=== PATIENT | male | born 1970 | race Caucasian/White ===

== ENCOUNTER 2017-06-14 13:04 | Emergency (ER) | payer MEDICAID, OTHER ==
[~2017-06-14] VITALS: Ht 152.4 cm; Wt 90.8 kg
[~2017-06-14 13:04] MED LIST: BUPR100T4 PO; BUSP5TAB3 PO; MELO-100 PO; TERB125G
[2017-06-14 13:17] VITALS: BP 120/82
[2017-06-14 14:37] LABS: CLARITY,URINE CLOUDY (Clear); COLOR,URINE YELLOW (Yellow); GLUCOSE, URINE NEGATIVE (Neg); KETONES,URINE NEGATIVE (Neg); LEUKOCYTE ESTERASE ,URINE LARGE (Neg); NITRITES, URINE NEGATIVE (Neg); OCCULT BLOOD,URINE MODERATE (Neg); PROTEIN,URINE TRACE mg/dl (Neg); UROBILINOGEN,URINE 0.2 E.U/dL (0.2-1.0)
[2017-06-14 14:44] LABS: UA COLLECTION TYPE VOIDED
[2017-06-14 14:45] LABS: BACTERIA,URINE FEW /HPF (Neg); MUCUS STRANDS NONE SEEN /LPF (Neg); WBC,URINE TNTC /HPF (0-4)
[2017-06-14 14:46] LABS: SQUAMOUS EPITHELIAL CELL,UR NONE SEEN /LPF (FEW)
[2017-06-14] MEDS ORDERED: CefTRIAXone 250MG IM Kit w/LIDOcaine IM ONE (14:50)
[2017-06-14] MEDS ORDERED: azithromycin 250mg tablet PO ONE ×2 (14:50→15:05)
[2017-06-14] MEDS ORDERED: CefTRIAXone 250MG inj IM ONE (14:50)
[2017-06-14] MEDS ORDERED: CLIN-80 PO (15:14)
== END 2017-06-14 15:39 | disposition home or self-care (01) ==
LOC: ER 13:05
DX: A64 Unspecified sexually transmitted disease (principal); B95.8 Unspecified staphylococcus as the cause of diseases classified elsewhere; F12.10 Cannabis abuse, uncomplicated; Z98.890 Other specified postprocedural states; Z79.899 Other long term (current) drug therapy; Z60.2 Problems related to living alone
CPT/HCPCS: 81001; 87088; 96372; 99284; J0696

== ENCOUNTER 2017-09-15 09:53 | Emergency (ER) | payer MEDICAID ==
[~2017-09-15] VITALS: Ht 175.3 cm; Wt 91.0 kg
[~2017-09-15 09:53] MED LIST changes: +CLIN-80 PO
[2017-09-15] MEDS ORDERED: CefTRIAXone 250MG IM Kit w/LIDOcaine IM ONE (10:20)
[2017-09-15] MEDS ORDERED: azithromycin 250mg tablet PO ONE (10:20)
[2017-09-15 11:01] LABS: CLARITY,URINE CLOUDY (Clear); COLOR,URINE YELLOW (Yellow); GLUCOSE, URINE NEGATIVE (Neg); KETONES,URINE NEGATIVE (Neg); LEUKOCYTE ESTERASE ,URINE SMALL (Neg); NITRITES, URINE NEGATIVE (Neg); OCCULT BLOOD,URINE TRACE-LYSED (Neg); PH,URINE 6.5 (4.8-8.0); PROTEIN,URINE NEGATIVE (Neg); UA COLLECTION TYPE OTHER; UROBILINOGEN,URINE 0.2 E.U/dL (0.2-1.0)
[2017-09-15 11:15] LABS: RBC,URINE 0-2 /HPF (0-2); WBC,URINE 50-100 /HPF (0-4)
[2017-09-15 11:16] LABS: BACTERIA,URINE FEW /HPF (Neg); MUCUS STRANDS MODERATE /LPF (Neg); SQUAMOUS EPITHELIAL CELL,UR FEW /LPF (FEW); WBC CLUMPS,URINE FEW /HPF (NEGATIVE)
[2017-09-15 11:53] VITALS: BP 149/78
== END 2017-09-15 11:57 | disposition home or self-care (01) ==
LOC: ER 09:53
DX: A64 Unspecified sexually transmitted disease (principal); F12.10 Cannabis abuse, uncomplicated; F17.200 Nicotine dependence, unspecified, uncomplicated; Z98.890 Other specified postprocedural states; Z79.899 Other long term (current) drug therapy; Z60.2 Problems related to living alone
CPT/HCPCS: 36415; 81001; 87088; 87491; 87591; 96372; 99284; J0696

== ENCOUNTER 2018-06-11 20:40 | Emergency (ER) | payer MEDICAID ==
[~2018-06-11 20:40] MED LIST changes: -CLIN-80 PO; +CLIN300C85 PO
== END 2018-06-11 22:25 | disposition left against medical advice (07) ==
LOC: ER 20:41
DX: L50.9 Urticaria, unspecified (principal); Z53.21 Procedure and treatment not carried out due to patient leaving prior to being seen by health care provider

== ENCOUNTER 2018-08-23 18:54 | Emergency (ER) | payer MEDICAID ==
[~2018-08-23] VITALS: Ht 175.3 cm; Wt 90.0 kg
[~2018-08-23 18:54] MED LIST changes: +CLIN-96 PO; -CLIN300C85 PO
[2018-08-23 19:27] VITALS: BP 114/72
[2018-08-23] MEDS ORDERED: LIDOcaine 1% w/epiNEPHrine 1:200,000 30ml vial IM ONE (20:30)
[2018-08-23] MEDS ORDERED: TETanus/Pertussis (Acell)/Diphther VAC/PF (Tdap-Adult) 0.5ml syringe IM ONE (20:30)
== END 2018-08-23 21:59 | disposition home or self-care (01) ==
LOC: ER 18:54
DX: S61.411A Laceration without foreign body of right hand, initial encounter (principal); F12.90 Cannabis use, unspecified, uncomplicated; Z98.890 Other specified postprocedural states; Z60.2 Problems related to living alone; Z79.899 Other long term (current) drug therapy; W26.8XXA Contact with other sharp object(s), not elsewhere classified, initial encounter; Y93.89 Activity, other specified; Y92.89 Other specified places as the place of occurrence of the external cause; Y99.8 Other external cause status
CPT/HCPCS: 12001; 90471; 90715; 99283; J3490

== ENCOUNTER 2018-09-01 08:36 | Emergency (ER) | payer MEDICAID ==
[~2018-09-01] VITALS: Ht 175.3 cm; Wt 95.4 kg
[2018-09-01 08:49] VITALS: BP 130/79
[2018-09-01] MEDS ORDERED: SULF1TAB49 PO (09:15)
[2018-09-01] MEDS ORDERED: CEPH-572 PO (09:15)
== END 2018-09-01 09:30 | disposition home or self-care (01) ==
LOC: ER 08:37
DX: S61.411D Laceration without foreign body of right hand, subsequent encounter (principal); L03.113 Cellulitis of right upper limb; F12.90 Cannabis use, unspecified, uncomplicated; Z98.890 Other specified postprocedural states; Z79.899 Other long term (current) drug therapy; Z60.2 Problems related to living alone; W26.8XXD Contact with other sharp object(s), not elsewhere classified, subsequent encounter
CPT/HCPCS: 99283

== ENCOUNTER 2018-09-26 08:29 | Inpatient (IN) | payer MEDICAID ==
[~2018-09-26] VITALS: Ht 175.3 cm; Wt 98.0 kg
[2018-09-26] MEDS ORDERED: ondansetron/PF 4mg/2ml inj IV ONE (08:40)
[2018-09-26] MEDS ORDERED: morphine 4 MG/ML inj SYRINge IV PRN (08:40)
[2018-09-26] MEDS ORDERED: normal saline 1000ML IV soln IVB ONE (08:40)
--- NOTE | 2018-09-26 09:31 | NUR ---
PIV inserted to RAC via ultrasound after multiple attempts. Morphine and Zofran administered per order. Warm blanket provided. Awaiting CT scan.
[2018-09-26 09:41] LABS: CLARITY,URINE CLEAR (Clear); COLOR,URINE YELLOW (Yellow); GLUCOSE, URINE NEGATIVE (Neg); KETONES,URINE NEGATIVE (Neg); LEUKOCYTE ESTERASE ,URINE NEGATIVE (Neg); NITRITES, URINE NEGATIVE (Neg); OCCULT BLOOD,URINE NEGATIVE (Neg); PROTEIN,URINE 30 mg/dl (Neg); UROBILINOGEN,URINE 0.2 E.U/dL (0.2-1.0)
[2018-09-26 09:48] LABS: UA COLLECTION TYPE CLN CATCH MIDSTREAM
[2018-09-26 09:49] LABS: BACTERIA,URINE NONE SEEN /HPF (Neg); MUCUS STRANDS MODERATE /LPF (Neg); RBC,URINE 0-2 /HPF (0-2); SQUAMOUS EPITHELIAL CELL,UR NONE SEEN /LPF (FEW); WBC,URINE 0-4 /HPF (0-4)
[2018-09-26] MEDS ORDERED: morphine 4 MG/ML inj SYRINge IV ONE (10:45)
[2018-09-26 10:49] LABS: BASOPHILS % (AUTO) 0.3 % (0-1); EOSINOPHILS # (AUTO) 0.1 X10'3 (0-0.9); EOSINOPHILS % (AUTO) 1.2 % (0-6); HEMATOCRIT 46.3 % (42.0-52.0); HEMOGLOBIN 15.5 g/dl (14.0-17.9); LYMPHOCYTES # (AUTO) 0.3 X10'3 (1.1-4.8); LYMPHOCYTES % (AUTO) 2.6 % (21-51); MEAN CORPUSCULAR HEMOGLOBIN 31.8 PG (27.0-31.0); MEAN CORPUSCULAR HGB CONC 33.4 g/dL (33.0-36.5); MEAN PLATELET VOLUME 8.4 FL (7.4-10.4); MONOCYTES # (AUTO) 0.5 X10'3 (0-0.9); MONOCYTES % (AUTO) 4.5 % (2-12); NEUTROPHILS # (AUTO) 10.4 X10'3 (1.8-7.7); NEUTROPHILS % (AUTO) 91.4 % (42-75); PLATELET COUNT 181 X10'3 (140-440); RED BLOOD COUNT 4.88 X10'6 (4.70-6.10); WHITE BLOOD COUNT 11.4 X10'3 (4.5-11.0)
[2018-09-26 11:02] LABS: ALANINE AMINOTRANSFERASE 37 U/L (12-78); ALBUMIN 3.3 G/DL (3.4-5.0); ALBUMIN/GLOBULIN RATIO 0.8 (1.1-1.5); ALKALINE PHOSPHATASE 108 IU/L (46-116); ANION GAP 6 (8-16); ASPARTATE AMINO TRANSFERASE 16 U/L (10-37); BILIRUBIN,TOTAL 0.6 MG/DL (0.1-1.0); BLOOD UREA NITROGEN 15 MG/DL (7-18); BUN/CREATININE RATIO 14.3 (5.4-32.0); CALCIUM 8.5 MG/DL (8.5-10.1); CHLORIDE 103 MMOL/L (99-107); CREATININE 1.05 MG/DL (0.60-1.10); GLUCOSE 102 MG/DL (70-104); LIPASE 210 U/L (73-393); POTASSIUM 4.1 MMOL/L (3.5-5.1); SODIUM 137 MMOL/L (135-145); TOTAL CARBON DIOXIDE 27.7 MMOL/L (24-32); TOTAL PROTEIN 7.5 G/DL (6.4-8.2); eGFR 75 ML/MIN
[2018-09-26] MEDS ORDERED: MIDAZolam 5mg/ml 2ml vial IV ONE (11:30)
[2018-09-26] MEDS ORDERED: NO HOME MEDS (11:39)
[2018-09-26] MEDS ORDERED: ondansetron/PF 4mg/2ml inj IV PRN (11:45)
[2018-09-26] MEDS ORDERED: morphine 2 MG/ML inj. syringe IV PRN (11:45)
[2018-09-26] MEDS ORDERED: magnesium hydroxide 30ml (MOM) UD suspension PO PRN (11:45)
[2018-09-26] MEDS ORDERED: acetaminophen 325mg tablet PO PRN (11:45)
[2018-09-26] MEDS ORDERED: mag hydrox/Alum hydrox/simeth 30ml oral suspension PO PRN (11:45)
[2018-09-26] MEDS: normal saline 1000ml 1,000 ML IV SCH ×2 (12:15→23:40)
[2018-09-26] MEDS ORDERED: LORazepam 2 mg/ml vial IV ONE (12:45)
--- NOTE | 2018-09-26 12:46 | NUR ---
Spoke with Emi VILLALOBOS regarding versed 5 mg IV order to place NG tube and need for moderate sedation protocol. Julia VILLALOBOS stated to discontinue versed and place verbal order for ativan 2 mg IV now for anxiety regarding NG tube placement.
--- NOTE | 2018-09-26 13:24 | NUR ---
ATIVAN GIVEN IVP ORDERED. ATTEMPTED TO INSERT NG TUBE WITHOUT SUCCESS. PATIENT IS VERY ANXIOUS AND MOVING HEAD AROUND DURING INSERTION, AND TUBE IS NOT PROGRESSING DOWN ESOPHAGUS. PATIENT REFUSES TO HAVE PROCEDURE REPEATED. TUBE REMOVED AND ER PROVIDER NOTIFIED OF INABILITY TO SECURE NG TUBE. PROVIDER STATES THAT TUBE WILL REMAIN OUT AND ORDER WILL BE DISCONTINUED.
--- NOTE | 2018-09-26 14:05 | NUR ---
Patient arrived to his room from ER via gurney accompanied by ENVIRONMENTAL MONITORING TECHNICIAN. Patient was sedated as he received Ativan at ER. Initially when patient's O2 sat was checked, the O2 sat was 87% on room air. Hooked patient to oxygen at 2 lpm/nc then O2 sat went up to 96%. Dr. Edwards notified about this
[2018-09-26 14:10] VITALS: BP 147/84
--- NOTE | 2018-09-26 17:52 | NUR ---
Patient has waking up although still feeling sleepy. Patient verbally gave me permission to give update to his daughter Jill
--- NOTE | 2018-09-26 18:35 | NUR ---
Problems reprioritized. Patient report given, questions answered & plan of care reviewed with Joss TUCKER.
[2018-09-26 20:00] VITALS: BP 128/81
[2018-09-26] MEDS: heparin, porcine 5000 units/ml vial SQ SCH (20:11)
[2018-09-26] MEDS: diatr meglu/diatrizoate 30ml oral sol.-(3 dose) bottle PO SCH (21:03)
[2018-09-26 23:30] VITALS: BP 115/65
[2018-09-27 05:53] LABS: BASOPHILS % (AUTO) 0.5 % (0-1); EOSINOPHILS # (AUTO) 0.1 X10'3 (0-0.9); EOSINOPHILS % (AUTO) 1.2 % (0-6); HEMATOCRIT 41.2 % (42.0-52.0); HEMOGLOBIN 14.1 g/dl (14.0-17.9); LYMPHOCYTES # (AUTO) 1.3 X10'3 (1.1-4.8); LYMPHOCYTES % (AUTO) 20.7 % (21-51); MEAN CORPUSCULAR HGB CONC 34.1 g/dL (33.0-36.5); MEAN CORPUSCULAR VOLUME 93.9 FL (78-98); MEAN PLATELET VOLUME 8.8 FL (7.4-10.4); MONOCYTES # (AUTO) 0.5 X10'3 (0-0.9); MONOCYTES % (AUTO) 8.5 % (2-12); NEUTROPHILS # (AUTO) 4.3 X10'3 (1.8-7.7); NEUTROPHILS % (AUTO) 69.1 % (42-75); PLATELET COUNT 159 X10'3 (140-440); RED BLOOD COUNT 4.39 X10'6 (4.70-6.10); RED CELL DISTRIBUTION WIDTH 13.1 % (11.5-14.5); WHITE BLOOD COUNT 6.2 X10'3 (4.5-11.0)
[2018-09-27 06:15] LABS: ALBUMIN 2.7 G/DL (3.4-5.0); ANION GAP 7 (8-16); BLOOD UREA NITROGEN 10 MG/DL (7-18); BUN/CREATININE RATIO 12.3 (5.4-32.0); CALCIUM 8.1 MG/DL (8.5-10.1); CHLORIDE 103 MMOL/L (99-107); CREATININE 0.81 MG/DL (0.60-1.10); GLUCOSE 97 MG/DL (70-104); POTASSIUM 3.8 MMOL/L (3.5-5.1); SODIUM 136 MMOL/L (135-145); TOTAL CARBON DIOXIDE 25.7 MMOL/L (24-32); eGFR > 90 ML/MIN
--- NOTE | 2018-09-27 06:22 | NUR ---
Problems reprioritized. Patient report given, questions answered & plan of care reviewed with SOURAV. Addendum: 09/27/18 at 0623 by Lino Hernandez RN Amended: Links added.
[2018-09-27 07:01] VITALS: BP 105/57
[2018-09-27] MEDS: diatr meglu/diatrizoate 30ml oral sol.-(3 dose) bottle PO SCH ×2 (07:08→10:21)
[2018-09-27] MEDS: normal saline 1000ml 1,000 ML IV SCH (07:12)
[2018-09-27] MEDS: heparin, porcine 5000 units/ml vial SQ SCH (08:00)
[2018-09-27] MEDS ORDERED: iohexol 300mg/ml 100ml inj. ONE (10:17)
[2018-09-27 11:50] VITALS: BP 123/73
--- NOTE | 2018-09-27 16:04 | NUR ---
Patient decided to go AMA instead of waiting for discharge. He was slightly anxious and impatient to wait for DR Medina. Girlfriend picked him up. IV taken out and tele dc'd. Pt appropriate to leave.No nausea, pain. says he is passing gas and tolerated regular diet well. Dr Edwards paged regarding AMA.
== END 2018-09-27 16:02 | disposition left against medical advice (07) | DRG 247 ==
LOC: ER 08:29 → SUR 3N 13:16
PROVIDERS: ADMIT Family Medicine; ATTEND Family Medicine
PROC: BW211ZZ Computerized Tomography (CT Scan) of Abdomen and Pelvis using Low Osmolar Contrast (ICD-10-PCS; principal; 2018-09-27)
DX: K56.600 Partial intestinal obstruction, unspecified as to cause (principal); F12.90 Cannabis use, unspecified, uncomplicated; F15.10 Other stimulant abuse, uncomplicated; R06.03 Acute respiratory distress; R19.7 Diarrhea, unspecified; Z53.21 Procedure and treatment not carried out due to patient leaving prior to being seen by health care provider; Z60.2 Problems related to living alone; K56.7 Ileus, unspecified; Z71.51 Drug abuse counseling and surveillance of drug abuser
CPT/HCPCS: 36415; 74176; 74177; 80048; 80053; 81001; 82948; 83690; 85025; 87070; 96361; 96374; 96375; 96376; 99285; G0378; J1644; J2060; J2270; J2405; J7030; Q9963; Q9967

== ENCOUNTER 2019-06-08 07:19 | Emergency (ER) | payer MEDICAID ==
[~2019-06-08] VITALS: Ht 175.3 cm; Wt 91.6 kg
[~2019-06-08 07:19] MED LIST changes: -BUPR100T4 PO; -BUSP5TAB3 PO; -CLIN-96 PO; -MELO-100 PO; +NO HOME MEDS; -TERB125G
[2019-06-08] MEDS ORDERED: famotidine/PF 10 mg/ml inj IV ONE (08:25)
[2019-06-08] MEDS ORDERED: normal saline 1000ML IV soln IVB ONE (08:25)
[2019-06-08] MEDS ORDERED: ondansetron/PF 4mg/2ml inj IV ONE (08:25)
[2019-06-08 08:43] LABS: CLARITY,URINE SLIGHTLY CLOUDY (Clear); COLOR,URINE YELLOW (Yellow); GLUCOSE, URINE NEGATIVE (Neg); KETONES,URINE NEGATIVE (Neg); LEUKOCYTE ESTERASE ,URINE NEGATIVE (Neg); NITRITES, URINE NEGATIVE (Neg); OCCULT BLOOD,URINE TRACE-INTACT (Neg); PROTEIN,URINE NEGATIVE (Neg)
[2019-06-08 08:54] LABS: UA COLLECTION TYPE CLN CATCH MIDSTREAM
[2019-06-08 08:55] LABS: BACTERIA,URINE 1+ /HPF (Neg); HYALINE CASTS 0-3 /LPF (NEGATIVE); MUCUS STRANDS MANY /LPF (Neg); SQUAMOUS EPITHELIAL CELL,UR FEW /LPF (FEW); WBC,URINE 0-4 /HPF (0-4)
[2019-06-08 09:23] LABS: BASOPHILS % (AUTO) 0.3 % (0-1); EOSINOPHILS # (AUTO) 0.1 X10'3 (0-0.9); EOSINOPHILS % (AUTO) 1.2 % (0-6); HEMATOCRIT 44.2 % (42.0-52.0); HEMOGLOBIN 15.3 g/dl (14.0-17.9); LYMPHOCYTES % (AUTO) 16.7 % (21-51); MEAN CORPUSCULAR HEMOGLOBIN 32.2 PG (27.0-31.0); MEAN CORPUSCULAR HGB CONC 34.6 g/dL (33.0-36.5); MEAN CORPUSCULAR VOLUME 93.1 FL (78-98); MEAN PLATELET VOLUME 8.8 FL (7.4-10.4); MONOCYTES % (AUTO) 17.8 % (2-12); NEUTROPHILS # (AUTO) 3.6 X10'3 (1.8-7.7); PLATELET COUNT 192 X10'3 (140-440); RED BLOOD COUNT 4.75 X10'6 (4.70-6.10); RED CELL DISTRIBUTION WIDTH 13.2 % (11.5-14.5); WHITE BLOOD COUNT 5.7 X10'3 (4.5-11.0)
[2019-06-08 09:46] LABS: ALANINE AMINOTRANSFERASE 68 U/L (12-78); ALBUMIN 3.1 G/DL (3.4-5.0); ALBUMIN/GLOBULIN RATIO 0.7 (1.1-1.5); ALKALINE PHOSPHATASE 121 IU/L (46-116); ANION GAP 7 (8-16); ASPARTATE AMINO TRANSFERASE 30 U/L (10-37); BILIRUBIN,TOTAL 0.4 MG/DL (0.1-1.0); BLOOD UREA NITROGEN 15 MG/DL (7-18); BUN/CREATININE RATIO 17.4 (5.4-32.0); CALCIUM 9.1 MG/DL (8.5-10.1); CHLORIDE 101 MMOL/L (99-107); CREATININE 0.86 MG/DL (0.60-1.10); GLUCOSE 89 MG/DL (70-104); LIPASE 82 U/L (73-393); POTASSIUM 3.8 MMOL/L (3.5-5.1); SODIUM 138 MMOL/L (135-145); TOTAL CARBON DIOXIDE 30.3 MMOL/L (24-32); TOTAL PROTEIN 7.6 G/DL (6.4-8.2); eGFR > 90 ML/MIN
[2019-06-08] MEDS ORDERED: ONDA4TAB6 PO (09:51)
[2019-06-08] MEDS ORDERED: BUTE12CR TOP (10:00)
[2019-06-08 10:10] VITALS: BP 127/67
== END 2019-06-08 10:12 | disposition home or self-care (01) ==
LOC: ER 07:20
DX: K52.9 Noninfective gastroenteritis and colitis, unspecified (principal); B35.6 Tinea cruris; F12.90 Cannabis use, unspecified, uncomplicated; F15.90 Other stimulant use, unspecified, uncomplicated
CPT/HCPCS: 80053; 81001; 83690; 85025; 96361; 96374; 96375; 99284; J2405; J3490; J7030

== ENCOUNTER 2019-07-05 22:16 | Emergency (ER) | payer MEDICAID ==
[~2019-07-05] VITALS: Ht 175.3 cm; Wt 90.9 kg
[~2019-07-05 22:16] MED LIST changes: +BUTE12CR TOP; +ONDA4TAB6 PO
[2019-07-05] MEDS ORDERED: normal saline 1000ML IV soln IVB ONE (22:50)
[2019-07-05] MEDS ORDERED: ondansetron 4mg rapidly disintigrating tab PO ONE (23:05)
[2019-07-05] MEDS ORDERED: proCHLORperazine 10 MG/2 ml inj IM ONE (23:05)
[2019-07-05] MEDS ORDERED: morphine 4 MG/ML inj SYRINge IM ONE (23:05)
[2019-07-05 23:13] LABS: BASOPHILS # (AUTO) 0.1 X10'3 (0-0.2); EOSINOPHILS # (AUTO) 0.1 X10'3 (0-0.9); MEAN CORPUSCULAR HEMOGLOBIN 31.7 PG (27.0-31.0); MONOCYTES # (AUTO) 1.4 X10'3 (0-0.9)
[2019-07-05 23:14] LABS: BASOPHILS % (AUTO) 0.4 % (0-1); EOSINOPHILS % (AUTO) 0.6 % (0-6); HEMOGLOBIN 16.3 g/dl (14.0-17.9); LYMPHOCYTES # (AUTO) 0.8 X10'3 (1.1-4.8); LYMPHOCYTES % (AUTO) 3.9 % (21-51); MEAN CORPUSCULAR HGB CONC 34.1 g/dL (33.0-36.5); MEAN CORPUSCULAR VOLUME 93.2 FL (78-98); MEAN PLATELET VOLUME 8.6 FL (7.4-10.4); NEUTROPHILS # (AUTO) 17.8 X10'3 (1.8-7.7); NEUTROPHILS % (AUTO) 88.1 % (42-75); PLATELET COUNT 285 X10'3 (140-440); RED BLOOD COUNT 5.15 X10'6 (4.70-6.10); RED CELL DISTRIBUTION WIDTH 13.8 % (11.5-14.5); WHITE BLOOD COUNT 20.2 X10'3 (4.5-11.0)
[2019-07-05 23:28] LABS: ALANINE AMINOTRANSFERASE 21 U/L (12-78); ALBUMIN 3.9 G/DL (3.4-5.0); ALBUMIN/GLOBULIN RATIO 0.8 (1.1-1.5); ALKALINE PHOSPHATASE 121 IU/L (46-116); ANION GAP 9 (8-16); ASPARTATE AMINO TRANSFERASE 27 U/L (10-37); BILIRUBIN,TOTAL 0.6 MG/DL (0.1-1.0); BLOOD UREA NITROGEN 15 MG/DL (7-18); CALCIUM 9.9 MG/DL (8.5-10.1); CHLORIDE 101 MMOL/L (99-107); CREATININE 1.25 MG/DL (0.60-1.10); GLUCOSE 124 MG/DL (70-104); LIPASE 102 U/L (73-393); POTASSIUM 3.7 MMOL/L (3.5-5.1); SODIUM 137 MMOL/L (135-145); TOTAL CARBON DIOXIDE 26.7 MMOL/L (24-32); TOTAL PROTEIN 8.7 G/DL (6.4-8.2); eGFR 61 ML/MIN
[2019-07-05 23:51] LABS: TOTAL CELLS COUNTED 100
[2019-07-05 23:52] LABS: LARGE PLATELETS FEW; PLATELET ESTIMATE NORMAL
--- NOTE | 2019-07-06 00:21 | NUR ---
PT RESTING COMFORTABLY ON LEFT SIDE - NO DISTRESS NOTED. IV FLUIDS INFUSING
--- NOTE | 2019-07-06 01:14 | NUR ---
PT TO CT SCAN VIA [facility]
--- NOTE | 2019-07-06 02:15 | NUR ---
notified dr crowell of hr greater than 90 wbc 20.2 with potential sources of infection and pt meeting sirs criteria at this time.
--- NOTE | 2019-07-06 02:26 | NUR ---
PT HAS NOT VOMITED SINCE TRIAGE - HE HAS BEEN SLEEPING FOR PAST COUPLE OF HOURS. NO DISTRESS NOTED.
[2019-07-06] MEDS ORDERED: DOXY100C43 PO (04:22)
[2019-07-06] MEDS ORDERED: SULF1TAB49 PO (04:22)
[2019-07-06 05:19] VITALS: BP 111/70
== END 2019-07-06 05:21 | disposition home or self-care (01) ==
LOC: ER 22:16
DX: L02.414 Cutaneous abscess of left upper limb (principal); R10.84 Generalized abdominal pain; F15.10 Other stimulant abuse, uncomplicated; R06.02 Shortness of breath; F17.200 Nicotine dependence, unspecified, uncomplicated; Z98.890 Other specified postprocedural states; Z60.2 Problems related to living alone; Z79.899 Other long term (current) drug therapy
CPT/HCPCS: 36415; 71045; 74176; 80053; 83690; 85025; 96372; 99285; J0780; J2270; J7030

== ENCOUNTER 2022-05-16 23:14 | Emergency (ER) | payer MEDICAID ==
[~2022-05-16] VITALS: Ht 175.3 cm; Wt 84.1 kg
[2022-05-16 23:20] VITALS: BP 139/86
[2022-05-16] MEDS ORDERED: CefTRIAXone 250MG IM Kit w/LIDOcaine IM STA (23:35)
[2022-05-16] MEDS ORDERED: PENICILLIN G BENZATHINE 2,400,000 UNIT/4 ML SYRINGE IM STA (23:35)
[2022-05-16] MEDS ORDERED: azithromycin 250mg tablet PO ONE (23:35)
[2022-05-16 23:53] LABS: BASOPHILS % (AUTO) 0.5 % (0-1); EOSINOPHILS # (AUTO) 0.1 X10'3 (0-0.9); EOSINOPHILS % (AUTO) 2.1 % (0-6); HEMATOCRIT 35.9 % (42.0-52.0); HEMOGLOBIN 12.3 g/dl (14.0-17.9); LYMPHOCYTES # (AUTO) 1.1 X10'3 (1.1-4.8); LYMPHOCYTES % (AUTO) 17.6 % (21-51); MEAN CORPUSCULAR HGB CONC 34.2 g/dL (33.0-36.5); MEAN CORPUSCULAR VOLUME 90.7 FL (78-98); MEAN PLATELET VOLUME 7.7 FL (7.4-10.4); MONOCYTES # (AUTO) 0.7 X10'3 (0-0.9); MONOCYTES % (AUTO) 11.9 % (2-12); NEUTROPHILS # (AUTO) 4.3 X10'3 (1.8-7.7); NEUTROPHILS % (AUTO) 67.9 % (42-75); PLATELET COUNT 259 X10'3 (140-440); RED BLOOD COUNT 3.96 X10'6 (4.70-6.10); RED CELL DISTRIBUTION WIDTH 13.5 % (11.5-14.5); WHITE BLOOD COUNT 6.3 X10'3 (4.5-11.0)
[2022-05-17 00:06] LABS: ALANINE AMINOTRANSFERASE 23 U/L (12-78); ALBUMIN 2.9 G/DL (3.4-5.0); ALBUMIN/GLOBULIN RATIO 0.7 (1.1-1.5); ALKALINE PHOSPHATASE 139 IU/L (46-116); ANION GAP 2 (8-16); ASPARTATE AMINO TRANSFERASE 25 U/L (10-37); BILIRUBIN,TOTAL 0.2 MG/DL (0.1-1.0); BLOOD UREA NITROGEN 10 MG/DL (7-18); BUN/CREATININE RATIO 11.9 (5.4-32.0); CALCIUM 8.4 MG/DL (8.5-10.1); CHLORIDE 103 MMOL/L (99-107); CREATININE 0.84 MG/DL (0.60-1.10); GLUCOSE 108 MG/DL (70-104); LIPASE 69 U/L (73-393); POTASSIUM 4.2 MMOL/L (3.5-5.1); SODIUM 136 MMOL/L (135-145); TOTAL CARBON DIOXIDE 31.5 MMOL/L (24-32); TOTAL PROTEIN 7.3 G/DL (6.4-8.2); eGFR > 90 ML/MIN
--- NOTE | 2022-05-17 00:10 | NUR ---
Pt states he is unable to urinate at this time; he urinated just before arriving at ER. Pt given PO water
[2022-05-17 00:33] LABS: HIV ANTIBODY 1&2 RAPID NON-REACTIVE (Neg)
[2022-05-17 00:47] LABS: CLARITY,URINE CLEAR (Clear); COLOR,URINE YELLOW (Yellow); GLUCOSE, URINE NEGATIVE (Neg); KETONES,URINE NEGATIVE (Neg); LEUKOCYTE ESTERASE ,URINE NEGATIVE (Neg); NITRITES, URINE NEGATIVE (Neg); OCCULT BLOOD,URINE NEGATIVE (Neg); PH,URINE 7.5 (4.8-8.0); PROTEIN,URINE NEGATIVE (Neg); UROBILINOGEN,URINE 0.2 E.U/dL (0.2-1.0)
[2022-05-17 00:49] LABS: UA COLLECTION TYPE CLN CATCH MIDSTREAM
[2022-05-17] MEDS ORDERED: DOXY-1 PO (01:04)
== END 2022-05-17 01:17 | disposition home or self-care (01) ==
LOC: ER 23:15
DX: R59.1 Generalized enlarged lymph nodes (principal); L53.8 Other specified erythematous conditions; F15.20 Other stimulant dependence, uncomplicated
CPT/HCPCS: 36415; 80053; 81003; 83690; 85025; 86592; 86703; 87491; 87591; 96372; 99284; J0561; J0696

== ENCOUNTER 2023-07-12 17:18 | Emergency (ER) | payer MEDICAID ==
[~2023-07-12] VITALS: Ht 175.3 cm; Wt 95.4 kg
[2023-07-12 17:20] VITALS: BP 98/74; PULSE 78; RESP 16; TEMP 98.7; O2SAT 98
[2023-07-12] MEDS ORDERED: iohexol 350MG/ML 100ml bottle IV ONE (19:14)
[2023-07-12 20:07] LABS: BILIRUBIN,URINE NEGATIVE (Neg); CLARITY,URINE SLIGHTLY CLOUDY (Clear); COLOR,URINE YELLOW (Yellow); GLUCOSE, URINE NEGATIVE (Neg); KETONES,URINE NEGATIVE (Neg); LEUKOCYTE ESTERASE ,URINE NEGATIVE (Neg); NITRITES, URINE NEGATIVE (Neg); OCCULT BLOOD,URINE NEGATIVE (Neg); PROTEIN,URINE NEGATIVE (Neg); UROBILINOGEN,URINE 0.2 E.U/dL (0.2-1.0)
[2023-07-12 20:17] LABS: UA COLLECTION TYPE CLN CATCH MIDSTREAM
[2023-07-12 20:19] LABS: BACTERIA,URINE NONE SEEN /HPF (Neg); MUCUS STRANDS NONE SEEN /LPF (Neg); RBC,URINE 0-2 /HPF (0-2); SQUAMOUS EPITHELIAL CELL,UR NONE SEEN /LPF (FEW); WBC,URINE 0-4 /HPF (0-4)
[2023-07-12 20:24] LABS: URINE AMPHETAMINE SCREEN POSITIVE (Neg); URINE BARBITUATE SCREEN NEGATIVE (Neg); URINE BENZODIAZEPINES SCREEN NEGATIVE (Neg); URINE CANNABINOID SCREEN NEGATIVE (Neg); URINE COCAINE SCREEN NEGATIVE (Neg); URINE METHADONE SCREEN NEGATIVE (Neg); URINE OPIATE SCREEN POSITIVE (Neg); URINE PHENCYCLIDINE SCREEN NEGATIVE (Neg)
[2023-07-12 20:37] LABS: ALBUMIN 3.1 G/DL (3.4-5.0); ANION GAP 7 (8-16); BLOOD UREA NITROGEN 16 MG/DL (7-18); CALCIUM 8.6 MG/DL (8.5-10.1); CHLORIDE 103 MMOL/L (99-107); GLUCOSE 90 MG/DL (70-104); MAGNESIUM 1.9 MG/DL (1.5-2.4); SODIUM 138 MMOL/L (135-145); TOTAL CARBON DIOXIDE 27.9 MMOL/L (24-32); eCRCL 106 ML/MIN; eGFR > 90 ML/MIN
[2023-07-12 20:38] LABS: POTASSIUM 5.7 MMOL/L (3.5-5.1)
[2023-07-12 20:39] LABS: BASOPHILS % (AUTO) 0.6 % (0-1); EOSINOPHILS % (AUTO) 0 % (0-6); HEMATOCRIT 40.5 % (42.0-52.0); HEMOGLOBIN 13.7 g/dl (14.0-17.9); MEAN CORPUSCULAR HEMOGLOBIN 31.3 PG (27.0-31.0); MEAN CORPUSCULAR HGB CONC 33.9 g/dL (33.0-36.5); MEAN CORPUSCULAR VOLUME 92.4 FL (78-98); MEAN PLATELET VOLUME 8.1 FL (7.4-10.4); MONOCYTES # (AUTO) 0.5 X10'3 (0-0.9); MONOCYTES % (AUTO) 10.1 % (2-12); NEUTROPHILS # (AUTO) 3.5 X10'3 (1.8-7.7); NEUTROPHILS % (AUTO) 69.3 % (42-75); PLATELET COUNT 189 X10'3 (140-440); RED BLOOD COUNT 4.38 X10'6 (4.70-6.10); RED CELL DISTRIBUTION WIDTH 13.2 % (11.5-14.5)
== END 2023-07-12 22:16 | disposition left against medical advice (07) ==
LOC: ER 17:19
DX: F15.10 Other stimulant abuse, uncomplicated (principal); F11.10 Opioid abuse, uncomplicated; Z79.899 Other long term (current) drug therapy
CPT/HCPCS: 36415; 71045; 73706; 80048; 80305; 81001; 83605; 83735; 84145; 85025; 87040; 99285; J3490; Q9967

== ENCOUNTER 2023-10-16 22:06 | Emergency (ER) | payer SELFPAY | END 2023-10-16 22:55 | disposition left against medical advice (07) | LOC: ER 22:07 | DX: R11.10 Vomiting, unspecified (principal); Z53.21 Procedure and treatment not carried out due to patient leaving prior to being seen by health care provider ==

== ENCOUNTER 2024-10-29 09:40 | Emergency (ER) | payer MEDICAID ==
[~2024-10-29] VITALS: Ht 175.3 cm; Wt 90.9 kg
[2024-10-29 09:46] VITALS: PULSE 106; O2SAT 96
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
[2024-10-29 10:54] VITALS: BP 140/94; RESP 16; TEMP 98.3
== END 2024-10-29 10:47 | disposition home or self-care (01) ==
LOC: ER 09:40
DX: S70.12XA Contusion of left thigh, initial encounter (principal); Z79.899 Other long term (current) drug therapy; V43.52XA Car driver injured in collision with other type car in traffic accident, initial encounter; Y93.89 Activity, other specified; Y92.89 Other specified places as the place of occurrence of the external cause; Y99.8 Other external cause status
CPT/HCPCS: 73552; 99283